=== PATIENT | female | born 1995 | race Caucasian/White ===

== ENCOUNTER 2018-09-13 16:32 | Emergency (ER) | payer OTHER ==
[2018-09-13] MEDS ORDERED: Lidocaine 5% Patch TD STA (16:56)
[2018-09-13] MEDS ORDERED: Lidocaine 5% Patch TD ONE (17:15)
--- NOTE | 2018-09-13 17:56 | C.PDOC ---
History Of Present Illness 23 year old female with mother presents to ED with complaint of right- sided christine-lumbar pain that is radiating to her right leg. Patient is also experiencing pain to her right wrist. She states that while at work she was putting a box of files away and felt a pull in her back. Patient reports feeling like she could not stand up and felt a spasm on her back. Patient denies neck pain, fever, and chills. Time Seen by Provider: 09/13/18 16:53 Chief Complaint (Nursing): Back Pain History Per: Patient History/Exam Limitations: no limitations Onset/Duration Of Symptoms: Unknown Current Symptoms Are (Timing): Still Present Quality Of Discomfort: "Pain" Previous Symptoms: Back Pain Associated Symptoms: denies: New Weakness, New Numbness Exacerbating Factor(s): Standing Past Medical History Reviewed: Historical Data, Nursing Documentation, Vital Signs Vital Signs: Last Vital Signs Temp 98.9 F 09/13/18 16:33 Pulse 71 09/13/18 16:33 Resp 20 09/13/18 16:33 BP 127/82 09/13/18 16:33 Pulse Ox 100 09/13/18 16:33 - Medical History PMH: No Chronic Diseases Surgical History: No Surg Hx Family History: States: Unknown Family Hx - Social History Hx Alcohol Use: No Hx Substance Use: No - Immunization History Hx Tetanus Toxoid Vaccination: No Hx Influenza Vaccination: No Hx Pneumococcal Vaccination: No Review Of Systems Constitutional: Negative for: Fever, Chills, Weakness Musculoskeletal: Positive for: Arm Pain (right wrist), Back Pain (right-sided p erilumbar area), Leg Pain (right). Negative for: Neck Pain Neurological: Negative for: Weakness, Numbness, Dizziness Physical Exam - Physical Exam Appears: No Acute Distress (while sitting, difficulty standing straight) Skin: Normal Color, Warm, Dry Head: Atraumatic, Normacephalic Neck: Normal ROM, Supple Chest: Symmetrical, No Deformity Gastrointestinal/Abdominal: Soft, No Tenderness Back: Paraspinal Tenderness (right perilumbar and buttock region) Extremity: Swelling (minimal swelling to the right wrist) Neurological/Psych: Oriented x3, Normal Speech, Normal Cognition ED Course And Treatment O2 Sat by Pulse Oximetry: 100 (in RA) Medical Decision Making Medical Decision Making: Impression: 23 year old female complains of back pain, right leg pain, and right wrist pain. Plan: Patient given Flexeril PO, Lidoderm TD, Motrin PO , and Tyenol PO Upon reassessment patient is resting comfortably, in no distress, and is stable for discharge. Discussed plan with patient who expresses understanding. All questions answered and there is agreement with the plan to discharge home with instructions. Return if symptoms persist or worsen. Disposition Counseled Patient/Family Regarding: Diagnosis, Need For Followup, Rx Given - Disposition Referrals: Pantera Mcclelland MD [Staff Provider] - Disposition: HOME/ ROUTINE Disposition Time: 17:54 Condition: STABLE Prescriptions: diaZEpam [Valium] 5 mg PO TID #15 tab Ibuprofen [Motrin] 600 mg PO TID #15 tab Instructions: Muscle Spasms (DC) Forms: [facility] ([place]), Work Excuse - POA Present On Arrival: None - Clinical Impression Clinical Impression: Low back pain, Muscle spasm - Scribe Statement The provider has reviewed the documentation as recorded by the Scribe (Elba Luevano) All medical record entries made by the Scribe were at my direction and personally dictated by me. I have reviewed the chart and agree that the record accurately reflects my personal performance of the history, physical exam, medical decision making, and the department course for this patient. I have also personally directed, reviewed, and agree with the discharge instructions and disposition.
[2018-09-13 18:12] VITALS: BP 105/68; PULSE 58; RESP 18; TEMP 98.8
[2018-09-13 18:29] VITALS: O2SAT 100
== END 2018-09-13 18:20 | disposition home or self-care (01) ==
LOC: C.ER 16:32
DX: M54.5 Low back pain (principal); M62.838 Other muscle spasm